=== PATIENT | male | born 2005 | race Caucasian/White ===

== ENCOUNTER 2025-05-25 00:33 | Outpatient (CLI) | payer OTHER, SELFPAY | END 2025-05-25 00:34 | disposition home or self-care (01) | LOC: AMB 05-31 09:08 | PROVIDERS: Visit Provider Family Medicine | DX: R56.9 Unspecified convulsions (principal) | CPT/HCPCS: A0998 ==

== ENCOUNTER 2025-07-03 13:32 | Emergency (ER) | payer BC, SELFPAY ==
[2025-07-03 13:34] VITALS: BP 134/79; PULSE 75; RESP 20; TEMP 36.6; O2SAT 99; BMI 26.3
--- NOTE | 2025-07-03 14:00 | ED_ITS ---
HPI - General Adult General Time Seen by Provider: 14:08 Date Seen: 07/03/25 Chief complaint: Sore Throat Stated complaint: swollen throat Time Seen by Provider: 07/03/25 13:38 Source: patient and RN notes reviewed Mode of arrival: ambulatory Limitations: no limitations History of Present Illness HPI narrative: This 19-year-old male is coming in with sore throat starting yesterday. He has felt some chills but no documented fever, admittedly does not have a thermometer at [facility]. He notes no otalgia, no respiratory symptoms, no abdominal symptoms with this. He took ibuprofen about 1 hour prior to arrival. It does hurt with swallowing but he is able to swallow. He is had no known recent ill contacts, roommate is not sick, no recent travel. Patient is not in any contact sports. Related Data Home Medications ?Medication ?Instructions ?Recorded ?Confirmed emtricitabine 200 mg-tenofovir 1 tab PO DAILY 07/03/25 07/03/25 disoproxil fumarate 300 mg tablet (Truvada) Allergies Allergy/AdvReac Type Severity Reaction Status Date / Time No Known Drug Allergies Allergy Verified 07/03/25 13:40 Review of Systems Narrative: As per HPI. Exam Const: Vital Signs, click to edit/add: Vital Signs - 24 hr 07/03/25 13:34 Temperature 97.9 F Pulse Rate [Pulse Oximeter] 75 Respiratory Rate 20 Blood Pressure [Ri ght Upper Arm] 134/79 Pulse Oximetry 99 Oxygen Delivery Me thod Room Air This 19-year-old male is alert, interactive, no apparent distress. He is seen in exam room for, sitting up in the chair. Pupils equal round reactive, sclera clear, TMs canals normal, symmetrical facial function. Speech is normal, not muffled. He opens his mouth easily, tonsils are about 1+ with white exudates bilaterally, they are symmetrical, the surrounding tissues erythematous, he still has a very good oral airway. Oral mucosa is normal, dentition is normal. He has some bilateral anterior adenopathy but nothing fixture matted, does not seem that tender. Do not note any posterior adenopathy at this time. Lungs are clear, good air entry, no wheezing or crackles, no tachypnea, no accessory muscle use. CV regular rate and rhythm, no murmur. Abdomen is soft, nontender. Documenting provider has reviewed patient's vital signs: yes Course Course ED Course: Nursing staff had collected a strep test and triple viral swab appropriately on arrival, this is pending. Patient and I discussed his throat certainly looks consistent with pharyngitis. If the triple viral swab and strep test are negative, would have suspicions for other bacterial causes of pharyngitis as well as possibly mono which is viral with EBV as a causative etiology. We did discuss with symptoms only about 24 hours, there would be a high chance of a false negative on the Monospot, the heterophile antibody takes while to develop. A CBC may be beneficial and allowing us to look at the cell lines and the total white count. If he would have significant monocytes on this, would be more concerned for mono. Patient does agree to do a CBC but declines Monospot testing after our discussion. We will do this if his strep does come back negative. Reevaluation(s) Time of Reevaluation #1: 14:41 Reevaluation #1: Patient's strep and triple viral swab are negative. Will order CBC. He is updated on this. Time of Reevaluation #2: 15:24 Reevaluation #2: Have reviewed with patient that his white count is normal but there is elevation of lymphocytes which would go with viral etiology. We discussed that this is different than the monocytes. I do think there is still the possibility that this is mono. Will give him steroids for symptom control, he would like this from [facility]. We discussed symptomatic treatment, outpatient observation recheck if worsening. I do not believe the antibiotics are indicated at this time, seems to be viral pattern. Vital Signs Vital signs: Initial Vital Signs Temperature 97.9 F 07/03/25 13:34 Temperature Source Temporal Artery Scan 07/03/25 13:34 Pulse Rate 75 07/03/25 13:34 Pulse Rhythm Regular 07/03/25 13:34 Pulse Strength 3+ Normal 07/03/25 13:34 Respiratory Rate 20 07/03/25 13:34 Blood Pressure 134/79 07/03/25 13:34 Blood Pressure Mean 97 07/03/25 13:34 Blood Pressure Position Sitting 07/03/25 13:34 Pulse Oximetry 99 07/03/25 13:34 Oxygen Delivery Method Room Air 07/03/25 13:34 Vital Signs Temperature 97.9 F 07/03/25 13:34 Pulse Rate 75 07/03/25 13:34 Respiratory Rate 20 07/03/25 13:34 Blood Pressure 134/79 07/03/25 13:34 Pulse Oximetry 99 07/03/25 13:34 Oxygen Delivery Method Room Air 07/03/25 13:34 Temperature 97.9 F 07/03/25 13:34 Pulse Rate 75 07/03/25 13:34 Respiratory Rate 20 07/03/25 13:34 Blood Pressure 134/79 07/03/25 13:34 Pulse Oximetry 99 07/03/25 13:34 Oxygen Delivery Method Room Air 07/03/25 13:34 Medical Decision Making Lab Data Lab results reviewed: Yes I reviewed the patient's lab results Labs: Lab Results 07/03/25 07/03/25 Range/Units 13:44 15:06 WBC 10.01 (4.50-11.00) K/uL RBC 5.11 (4.30-5.90) m/uL Hgb 15.1 (13.5-17.5) gm/dL Hct 44.9 (37.0-53.0) % MCV 88 (80-100) fL MCH 30 (26-34) pg MCHC 34 (32-36) gm/dL RDW Coeff of Bruno 11.8 (11.5-15.5) % Plt Count 204 (140-440) K/uL Neut % (Auto) 44.2 (42.0-72.0) % Lymph % (Auto) 46.5 H (20-44) % Pettis % (Auto) 8.4 (0.0-11.0) % Eos % (Auto) 0.5 (0.0-7.0) % Baso % (Auto) 0.2 (0.0-3.0) % Neut # (Auto) 4.43 (1.7-7.0) K/uL Lymph # (Auto) 4.70 H (0.90-2.90) K/uL Pettis # (Auto) 0.80 (0.00-0.90) K/UL Eos # (Auto) 0.05 (0.00-0.50) K/uL Baso # (Auto) 0.02 (0.00-0.30) K/uL Abs Immat Gran (auto) 0.02 (0.00-0.30) K/uL Imm/Tot Granulo (auto) 0.2 % SARS-CoV-2 (PCR) Negative SARS-CoV-2 (Negative) Influenza Type A (PCR) Negative PCR FLU A (Negative) Influenza Type B (PCR) Negative PCR FLU B (Negative) RSV (PCR) Negative PCR RSV (Negative) Group A Strep DNA NOT DETECTED (Not Detectd) Discharge Plan Discharge Clinical Impression: Acute viral pharyngitis Patient Disposition: Home, Self-Care Condition: Stable Instructions: Pharyngitis (ED) Additional Instructions: Start prednisone 20 mg twice a day for 5 days, this will help decrease inflammation and can certainly make you feel better. Can still use Tylenol and ibuprofen per bottle directions as needed for symptom control. Do recommend using Tylenol 1000 mg 3 times a day baseline for pain through this. Encourage fluids, this will help you stay hydrated. If you are not improving over the next week, feel you are worsening at any point, please seek re-evaluation. Activity Level: Activity as Tolerated Discharge Diet: Regular Prescriptions: No Action emtricitabine-tenofovir (TDF) [Truvada] 200-300 mg tablet 1 tab PO DAILY Follow Up/Referrals: Provider,Not a Local [Primary Care Provider, Family Practice] Stand Alone Forms: MyHealth Info Instructions
[2025-07-03 14:19] LABS: Strep A DNA Probe* NOT DETECTED (Not Detectd)
[2025-07-03 14:30] LABS: PCR FLU A Negative PCR FLU A (Negative); PCR FLU B Negative PCR FLU B (Negative); PCR RSV Negative PCR RSV (Negative); SARS PCR* Negative SARS-CoV-2 (Negative)
[2025-07-03 15:13] LABS: Hematocrit* 44.9 % (37.0-53.0); Hemoglobin* 15.1 gm/dL (13.5-17.5); Immature Granulocytes Abs Auto 0.02 K/uL (0.00-0.30); Immature Granulocytes Pct Auto 0.2 %; Mean Corpuscular HGB Conc 34 gm/dL (32-36); Mean Corpuscular Hemoglobin 30 pg (26-34); Mean Corpuscular Volume 88 fL (80-100); RDW Coefficient of Variation % 11.8 % (11.5-15.5); Red Blood Count* 5.11 m/uL (4.30-5.90); White Blood Count* 10.01 K/uL (4.50-11.00)
[2025-07-03 15:17] LABS: Lymphocytes Absolute Auto 4.70 K/uL (0.90-2.90); Slide Review Reflex No
[2025-07-03 15:39] VITALS: BP 103/70; PULSE 69; RESP 16; O2SAT 98
== END 2025-07-03 15:43 | disposition home or self-care (01) ==
PROVIDERS: Emergency Provider Family Medicine
DX: J02.9 Acute pharyngitis, unspecified (principal)
CPT/HCPCS: 36415; 85025; 87631; 87651; 99283

== ENCOUNTER 2025-07-30 00:41 | Emergency (ER) | payer BC, SELFPAY ==
--- OUTSIDE RECORDS SUMMARY | 2025-06-07 15:30 | XMS_ITS | Encounter Summary ---
Author Organization [facility] Address [address] [place] [address] Care Team Providers Care Odd Jobs Day Worker Name Role Phone Spencer Noonan RN Unavailable [phone] Pily Acevedo DO Primary Care Provider [phone] Reason for Referral * MRI/CAT Scan (Routine) - Authorization Not NeededSpecialtyDiagnoses / ProceduresReferred By ContactReferred To ContactRadiology Diagnoses Seizure-like activity Procedures MRI Brain w wo Contrast Pily Acevedo DO [address] [facility] [address] [place] [address] Phone: tel: fax: Referral IDStatusReasonStart DateExpiration DateVisits RequestedVisits [id number] Not Xhtows54/ Reason for Visit * ReasonCommentsFollow-upSeizure first time Encounter Details DateTypeDepartmentCare Team (Latest Contact Info)Suqpafunkgt71/20/2025 4:30 PM CDTOffice Visit [facility] [address] [place], [place] [id number] Pily Acevedo DO [address] [facility] [address] [place] [address] Seizure-like activity (Primary Dx) Social History Tobacco UseTypesPacks/DayYears UsedDateSmoking Tobacco: NeverSmokeless Tobacco: Never Comments:Denies any secondha nd smoke exposure. Alcohol UseStandard Drinks/WeekCommentsNever0 (1 standard drink = 0.6 oz pure alcohol)AUDIT-CAnswerDate RecordedQ1: How often do you have a drink containing alcohol?Never02/29/2020Average Number of DrinksNot on file02/29/2020Frequency of Binge DrinkingNot on file02/29/2020PHQ-2AnswerDate RecordedPHQ-2 Total Score0 06/07/2025Sex and Gender InformationValueDate RecordedSex Assigned at BirthNot on fileLegal FcvIznv86/21/2012 11:48 AM CDTGender IdentityNot on fileSexual OrientationLesbian or Gay06/07/2025 10:38 AM CDTdocumented as of this encounter Last Filed Vital Signs Vital SignReadingTime TakenCommentsBlood Kubnigzb880/8206/07/2025 4:38 PM CDT Rfnnd700206/07/2025 4:38 PM KHLXlawpddqgho98.8 ??C (98.2 ??F)06/07/2025 4:38 PM CDTRespiratory Bluz4380 4:38 PM CDTOxygen Hddlnsxasp38%06/07/2025 4:38 PM CDTInhaled Oxygen Concentration--Oqindk96.4 kg (217 lb)06/07/2025 4:38 PM CDT Vnrmcj376.6 cm (6' 5)06/07/2025 4:38 PM CDTBody Mass Index25.7306/07/2025 4:38 PM CDTdocumented in this encounter Functional Status * Are you deaf or do you have serious difficulty hearing?AnswerDate of BtjjyjukkjTwscqsGn17/20/2025 4:40 PM Shiloh Vargas LPN * Are you blind or do you have serious difficulty seeing, even when wearing glasses?AnswerDate of XqlkfvzkaqLzgssrSg59/20/2025 4:40 PM Shiloh Vargas LPN * Do you have serious difficulty walking or climbing stairs? (5 years old or older)AnswerDate of FaferuuercJkvaiyCy22/20/2025 4:40 PM Shiloh Vargas LPN * Do you have difficulty dressing or bathing? (5 years old or older)AnswerDate of DkaphbcqogSwawyuTc58/20/2025 4:40 PM CDShiloh Ramírez LPN * Because of a physical, mental, or emotional condition, do you have difficulty doing errands alone such as visiting a doctor's office or shopping? (15 years old or older)AnswerDate of TgmwtocyhpSticchVk26/20/2025 4:40 PM Shiloh Vargas LPN documented as of this encounter Mental Status * Because of a physical, mental, or emotional condition, do you have serious difficulty concentrating, remembering, or making decisions? (5 years old or older)AnswerEntry CycoVfkpnmOp57/20/2025 4:40 PM Shiloh Vargas LPN documented in this encounter Progress Notes * Pily Acevedo, DO - 06/07/2025 4:30 PM CDT Subjective Dominik Gtz is a 19 y.o. male presents for possible seizure, new onset. This was around midnight 05/24/2025. He was just not feeling well and sitting on the floor. He started shaking and roommate said it was about 40 sec. EMS evaluated and vitals ok other than slightly high blood pressure. He had slight fever afterwards, but not before. No history of headache. No new medication. Hedid not have alcohol for a few days. He is typically drinking about weekly and doesn't have black outs or hangovers. No biting tongue or loss of bowel or bladder control. He felt nauseous prior to this, but no other symptoms. He was sleep deprived with about 8 hours of sleep over the previous 48 hours. He was a little out of it right after episode, but was improving prior to EMT arrival (15-30 min). No drug use. No family history of seizures. Patient's problem list, medications, allergies, past medical, surgical, social and family historieswere reviewed and updated as appropriate. Objective BP 120/82 Pulse 70 Temp 36.8 ??C (98.2 ??F) (Tympanic) Resp 18 Ht 195.6 cm (6' 5) Wt 98.4 kg (217 lb) SpO2 98% BMI 25.73 kg/m?? BP 120/82 Pulse 70 Temp 36.8 ??C (98.2 ??F) (Tympanic) Resp 18 Ht 195.6 cm (6' 5) Wt 98.4 kg (217 lb) SpO2 98% BMI 25.73 kg/m?? General appearance: alert, appears stated age, and cooperative Head: Normocephalic, without obvious abnormality, atraumatic Eyes: conjunctivae/corneas clear. PERRL, EOM's intact. Ears: normal TM's and external ear canals both ears Throat: lips, mucosa, and tongue normal; teeth and gums normal Neck: no adenopathy, no JVD, supple, symmetrical, trachea midline, and thyroid not enlarged, symmetric, no tenderness/mass/nodules Lungs: clear to auscultation bilaterally Heart: regular rate and rhythm, S1, S2 normal, no murmur, click, rub or gallop Extremities: extremities normal, atraumatic, no cyanosis or edema Skin: Skin color, texture, turgor normal. No rashes or lesions Neurologic: Alert and oriented X 3, normal strength and tone. Normal symmetric reflexes. Normal coordination and gait. No dysdiadochokinesia. Normal izjcvc-dgnb-cogbpw test, heel saba. Psych: appropriately attired, well kept, behavior and speech normal, mood and affect appropriate. Assessment & Plan Dominik was seen today for follow-up. Diagnoses and all orders for this visit: Seizure-like activity - MRI Brain w wo Contrast; Future - EEG Routine; Future - Comprehensive metabolic panel; Future - CBC and differential; Future - Magnesium; Future - TSH; Future Testing as above. No diagnosis of diabetes. I do not know if this was checked by EMS at the time ofthe incident. It is possible that this is a new onset seizure, but may also be related to illness and blood pressure drop. Advised sleep deprivation can trigger seizure for people that are prone, butcan also affect ability to regulate blood pressure. Denies drug use or concerns for withdrawal. No medication changes that would potentially account for his symptoms. Advised as his episode was at nighttime, this technically would not prevent him from being able to drive, but if there are episodes of uncontrolled body control, particularly if they cannot be predicted that it would be a risk to drive. Advised that you can have a normal EEG and still have seizures MRI. If MRI does show any lesions, this would need specialist referral depending on findings. This is not clearly a seizure/seizure disorder at this time and medication is not indicated for it. documented in this encounter Miscellaneous Notes * Addendum Note - Lamin Polo LPN - 06/07/2025 4:30 PM CDTAddended by: LAMIN POLO on: 06/08/2025 04:57 PM Modules accepted: Orders * Addendum Note - Lamin Polo LPN - 06/07/2025 4:30 PM CDTAddended by: LAMIN POLO on: 07/06/2025 11:58 AM Modules accepted: Orders [employer] documented in this encounter Plan of Treatment NameTypePriorityAssociated DiagnosesDate/TimeMRI Brain w wo ContrastImaging Routine Seizure-like activity 06/10/2025 3:50 PM CDTNameTypePriorityAssociated DiagnosesOrder ScheduleMRI Brain w wo ContrastImagingRoutine Seizure-like activity Expected: 06/07/2025 (Approximate), Expires: 09/05/2025documented as of this encounter Goals GoalPatient Goal TypeAssociated ProblemsRecent ProgressPatient-Stated?Author 07/01/18 Reduce portion sizes DietOn track(04/15/2019 11:49 AM CDT)Lala Osborn RN Note: Discussed portion sizes and gave D[employer] [place] [employer] [place]/[email or web address] serving size chart Strategies to decrease portions by: ?? Knowing what portions of different foods look like. ?? Making sure at least 1/2 of the plate is fruit/vegetable. And using only 9 plates. ?? Resource: [employer] magazine for lunch ideas!!! Ways to increase our fruit/vegetable intake during the day: ?? Chopping and bagging up vegetables, such as celery and carrots, at the beginning of the week so that portions of veggies are available to grab and go! ?? Preparing more vegetables at meal time than the grain/carb or protein. Fill up on vegetables andyou'll have less room for the carb. Eat more fruits and vegetables Spencer Reveles, RN Note: Dominik is going to try a new fruit and vegetable each week to expand his options and find different things he likes. 07/01/18 Family meals GeneralOn track(04/15/2019 11:49 AM CDT)Lala Merlos, FILIBERTO Note: Dominik expressed interest in having more family meals. He and mom set up plan to make a schedule of meals for the week and do the grocery shopping on Saturdays using a list. They are going to do meal prep on Sundays and during the week Dominik agreed to help prepare the mealsso he would be more invested in what was being served. 07/01/18 Family to work together to make dinner LifestyleOn track(04/15/2019 11:49 AM CDT)Lala Osborn, FILIBERTO Note: . Family is going to make a meal plan for the week and prepare the meals together. Come up with meal options (5210 recipe booklets and [employer] magazines) documented as of this encounter Results * TSH (06/08/2025 8:55 AM CDT)ComponentValueRef RangeTest MethodAnalysis Time Performed AtPathologist SignatureTSH2.1300.270 - 4.200 u[IU]/mL06/08/2025 7:55 PM CDTPathology LaboratoryComment:Performed at [facility], [address] [place] [id number] (Source)Anatomical Location / LateralityCollection Method / VolumeCollection TimeReceived TimeSerum 06/08/2025 8:55 AM CDT1 8:57 AM CDT Narrative Authorizing ProviderResult TypeResult StatusPily Gardineran DOLAB BLOOD ORDERABLES Final ResultPerforming OrganizationAddressCity/State/ZIP CodePhone Number [facility] [address] [place], [address] [facility] [address] [place] [address] * Magnesium (06/08/2025 8:55 AM CDT)ComponentValueRef RangeTest MethodAnalysis TimePerformed AtPathologist SignatureMagnesium2.01.6 - 2.6 mg/dL06/08/2025 7:55 PM CDTPathology LaboratoryComment:Performed at [facility], [address] [place] [address], [place], [place] [address]Bsrkqhum (Source)Anatomical Location / LateralityCollection Method / VolumeCollection TimeReceived TimeSerum 06/08/2025 8:55 AM CDT1 8:57 AM CDT Narrative Authorizing ProviderResult TypeResult StatusPily Acevedo DOLAB BLOOD ORDERABLES Final ResultPerforming OrganizationAddressCity/State/ZIP CodePhone Number [facility] [address] [place], [address] [facility] [address] [place] [address] * CBC and differential (06/08/2025 8:55 AM CDT)ComponentValueRef RangeTest MethodAnalysis TimePerformed AtPathologist SignatureWBC7.554.0 - 11.0 10*3/uL 06/08/2025 10:17 AM CDTUNUNITYPOINT [facility] EDRBC4.754.60 - 6.20 10*6/uL 06/08/2025 10:17 AM CDTUNUN[facility] KTFLJV55.514.0 - 18.0 g/dL 06/08/2025 10:17 AM CDTUNITY[facility] ZKYJNS03.442.0 - 52.0 % 06/08/2025 10:17 AM CDTUNUN[facility] BLBRVY53.381.0 - 98.0 fL 06/08/2025 10:17 AM CDTUNUN[facility] WARDJXZWOE60.527.0 - 34.0 pg 06/08/2025 10:17 AM [facility] WARDCGJGQOR38.231.5 - 36.0 g/dL 06/08/2025 10:17 AM [facility] [address] WARDFOWUtbqrilxn091215 - 450 10*3/uL06/08/2025 10:17 AM [facility] [address] HAYRDW-CV12.09.0 - 14.5 %06/08/2025 10:17 AM [facility] [address] QUCWIA25.18.7 - 12.6 fL 06/08/2025 10:17 AM [facility] MERCHATO HAYNeutrophil %61.3%06/08/2025 10:17 AM [facility] MERLE HAYNeutrophils Absolute4.631.5 - 8.0 10*3/uL06/08/2025 10:17 AM [facility] MERCHATO HAYLymphocytes %27.9% 06/08/2025 10:17 AM [facility] MERCHATO HAYLymphocytes Absolute2.111.2 - 5.2 10*3/uL06/08/2025 10:17 AM [facility] MERLE HAYMonocyte %8.9% 06/08/2025 10:17 AM [facility] MERCHATO HAYMonos Absolute0.670.0 - 1.0 10*3/uL06/08/2025 10:17 AM [facility] MERLE HAYEosinophils Relative %1.1%06/08/2025 10:17 AM [facility] MERLE HAYEosinophils Absolute Count0.080.0 - 0.5 10*3/uL06/08/2025 10:17 AM [facility] MERLE HAY Basophils %0.4%06/08/2025 10:17 AM [facility] MERLE HAYBasophils Absolute0.030.0 - 0.1 10*3/uL06/08/2025 10:17 AM [facility] MERLE HAYImmature Granulocytes%0.40.0 - 0.6 %06/08/2025 10:17 AM CDTUNUV[facility] [address] WARDImmature Granulocytes Absolute0.030.0 - 0.9 10*3/uL06/08/2025 10:17 AM CDTUNUVA HEALTH [facility]ERS[facility] [address] WARDComment:Performed at [facility], [address], [place] [address].Specimen (Source)Anatomical Location / LateralityCollection Method / VolumeCollection TimeReceived Time BloodBLOOD SPECIMEN / Fluczvr0206/08/2025 8:55 AM CDT1 8:57 AM CDT Narrative Authorizing ProviderResult TypeResult StatusErin Vaughn SABA BLOOD ORDERABLES Final ResultPerforming OrganizationAddressCity/State/ZIP CodePhone Number [facility] [address] [facility] [address] [place], [address] [facility] [place] [address] [place] [address] * (ABNORMAL) Comprehensive metabolic panel (06/08/2025 8:55 AM CDT)Component ValueRef RangeTest MethodAnalysis TimePerformed AtPathologist SignatureSodium 448154 - 145 mmol/L1 7:55 PM CDTPathology LaboratoryPotassium4.13.5 - 5.1 mmol/L1 7:55 PM CDTPathology BizecfdtzhNgslwkbw35470 - 107 mmol/L1 7:55 PM CDTPathology NypftxuqzkLG05017 - 29 mmol/L1 7:55 PM CDTPathology JqflrhvhebWnwlvuc328(H)70 - 99 mg/dL06/08/2025 7:55 PM CDTPathology BfgvirjkdfOWZ872 - 20 mg/dL06/08/2025 7:55 PM CDTPathology LaboratoryCreatinine0.840.8 - 1.3 mg/dL06/08/2025 7:55 PM CDTPathology LaboratoryCalcium9.48.5 - 10.5 mg/dL06/08/2025 7:55 PM CDTPathology Laboratory Total Protein6.86.4 - 8.3 g/dL06/08/2025 7:55 PM CDTPathology Laboratory Albumin4.63.5 - 5.2 g/dL06/08/2025 7:55 PM CDTPathology LaboratoryBilirubin Total0.50.4 - 1.3 mg/dL06/08/2025 7:55 PM CDTPathology LaboratoryAlkaline Nsbwamoksdf32365 - 129 U/L1 7:55 PM CDTPathology HwikoygpujAJP413 - 48 U/L1 7:55 PM CDTPathology KhvjmrrwubFYC55<41 U/L1 7:55 PM CDTPathology LaboratoryAnion Cnb10stbh/L1 7:55 PM CDTPathology LaboratoryBUN/Creatinine Ratio11.81 7:55 PM CDTPathology Laboratory Osmolality Roemsuavdl721(H)275 - 295 mosm/kg06/08/2025 7:55 PM CDTPathology LaboratoryGlobulin2.2g/dL06/08/2025 7:55 PM CDTPathology LaboratoryA/G Ratio 2.110 7:55 PM CDTPathology LaboratoryCreatinine Based eGFR>90 mL/min/[1.73_m2]06/08/2025 7:55 PM CDTPathology LaboratoryComment: GFR >90 Normal or elevated GFR. Performed at [facility], [address] [place] [address] Specimen (Source)Anatomical Location / LateralityCollection Method / Volume Collection TimeReceived YnekXncei22/21/2025 8:55 AM CDT1 8:57 AM CDT Narrative Authorizing ProviderResult TypeResult StatusPily Mendes Kristina SABA BLOOD ORDERABLES Final ResultPerforming OrganizationAddressCity/State/ZIP CodePhone Number [facility] [address] [place], [address] [facility] [address] [place] [address]. [address] [place] [address] documented in this encounter Visit Diagnoses Diagnosis Seizure-like activity- Primary Other convulsions documented in this encounter Additional Health Concerns AssessmentNoted TimeA Body Mass Index follow-up plan has been documented for the fkteknm4803/27/2023 12:55 PM CDTdocumented as of this encounter Care Teams Team MemberRelationshipSpecialtyStart DateEnd Date Pily Acevedo, [address] [id number] PCP - GeneralFamily Medicine02/16/25 Spencer Noonan, RN [address] [place] [address] Care CoordinatorCare Ppdoofouhhdx33/9/18documented as of this encounter
[2025-07-30 00:46] VITALS: BP 137/79; PULSE 71; RESP 18; TEMP 36.4; O2SAT 97; BMI 30.7
--- NOTE | 2025-07-30 01:05 | ED.GENADULT ---
HPI - General Adult General Chief complaint: Skin/Abscess/Foreign Body Stated complaint: left foot toe pain Time Seen by Provider: 07/30/25 00:53 History of Present Illness HPI narrative: Patient is a 19-year-old gentleman comes in today with pain and swelling around the left great toe nail bed. The pain and swelling is localized to the superior aspect of the nail as consistent with a paronychia. Patient has had no fevers no signs of systemic infection no chills no night sweats. Patient is otherwise in good health and his tetanus shot is up-to-date. Related Data Home Medications ?Medication ?Instructions ?Recorded ?Confirmed emtricitabine 200 mg-tenofovir 1 tab PO DAILY 07/03/25 07/03/25 disoproxil fumarate 300 mg tablet (Truvada) Allergies Allergy/AdvReac Type Severity Reaction Status Date / Time No Known Drug Allergies Allergy Verified 07/03/25 13:40 Review of Systems Status of ROS: Reports: 10 or more systems reviewed and unremarkable except as noted in History and below PFSH PFS Social History Smoking Status: Never smoker How often do you have a drink containing alcohol: monthly or less AUDIT-C Alcohol total score: 1 Non-prescribed substance use: marijuana (any form) Non-prescribed substance use details: occasionally Exam Narrative: Exam Narrative: EXAM GENERAL: Patient appears comfortable and well. EYES: No scleral icterus. ENT: Tympanic membranes and oropharynx normal. THYROID: no thyroid nodules or thyromegaly. LYMPH: No supraclavicular or cervical lymphadenopathy. SKIN: Visible skin seen during exam normal or with benign process only. EXT: No dependent lower extremity pedal edema. Paronychia noted superior aspect left great toenail. Surrounding erythema noted. HEART: Regular rate and rhythm with no murmurs, rubs, or gallops. LUNGS: Clear to auscultation bilaterally with no crackles or wheezes. ABD: Soft, non tender, non distended. PSYCH: Good eye contact, speech is not pressured. Const: Vital Signs, click to edit/add: Vital Signs - 24 hr 07/30/25 00:46 Temperature 97.6 F Pulse Rate [Right Pulse Oximeter] 71 Respiratory Rate 18 Blood Pressure [Ri ght Upper Arm] 137/79 Pulse Oximetry 97 Oxygen Delivery Me thod Room Air Course Vital Signs Vital signs: Initial Vital Signs Temperature 97.6 F 07/30/25 00:46 Temperature Source Temporal Artery Scan 07/30/25 00:46 Pulse Rate 71 07/30/25 00:46 Respiratory Rate 18 07/30/25 00:46 Blood Pressure 137/79 07/30/25 00:46 Blood Pressure Mean 98 07/30/25 00:46 Blood Pressure Position Sitting 07/30/25 00:46 Pulse Oximetry 97 07/30/25 00:46 Oxygen Delivery Method Room Air 07/30/25 00:46 Vital Signs Temperature 97.6 F 07/30/25 00:46 Pulse Rate 71 07/30/25 00:46 Respiratory Rate 18 07/30/25 00:46 Blood Pressure 137/79 07/30/25 00:46 Pulse Oximetry 97 07/30/25 00:46 Oxygen Delivery Method Room Air 07/30/25 00:46 Temperature 97.6 F 07/30/25 00:46 Pulse Rate 71 07/30/25 00:46 Respiratory Rate 18 07/30/25 00:46 Blood Pressure 137/79 07/30/25 00:46 Pulse Oximetry 97 07/30/25 00:46 Oxygen Delivery Method Room Air 07/30/25 00:46 Medical Decision Making MDM Narrative Medical decision making narrative: Officially the risks and benefits of the procedure I did provide local anesthesia with 1% lidocaine without epinephrine. I then made a 1 cm incision draining a large amount of pus from the toe. We did dress the wound and instructed him on wound care. I will ask him to rotate Tylenol and Motrin keep his foot elevated and take Keflex 500 mg 3 times a day for 7 days. He will follow-up with his primary physician as needed. Discharge Plan Discharge Clinical Impression: Paronychia Patient Disposition: Home, Self-Care Condition: Stable Additional Instructions: Keep wound clean Triple antibiotic Daily dressing changes Tylenol Motrin Keflex Follow-up with your doctor as needed. Activity Level: No Restrictions Discharge Diet: Regular Prescriptions: No Action emtricitabine-tenofovir (TDF) [Truvada] 200-300 mg tablet 1 tab PO DAILY Follow Up/Referrals: Provider,Not a Local [Primary Care Provider, Family Practice] Stand Alone Forms: Ar[employer] Info Instructions
--- OUTSIDE RECORDS SUMMARY | 2025-07-30 01:18 | XMS_ITS | Clinical Summary ---
Author Organization [facility] Address [address] [place] [address] Care Team Providers Care Utility Forester Name Role Phone RockyjaswinderSpencer RN Unavailable [phone] Pily Acevedo DO Primary Care Provider [phone] Source Comments This disclosure is being made pursuant to the [employer] program and maynot contain all information available regarding this patient.[facility] Allergies No known active allergies Medications MedicationSigDispense QuantityRefillsLast FilledStart DateEnd DateStatus doxycycline hyclate (VIBRAMYCIN) 100 MG capsule Take 100 mg by mouth 2 (two) times daily with meals.5Active tretinoin (RETIN-A) 0.025 % cream APPLY THIN FILM TO FACE AT NIGHT BEFORE BED5Active emtricitabine-tenofovir (TRUVADA) 200-300 MG per tablet TAKE ONE TABLET BY MOUTH EVERY DAY START MEDICATION WITHIN 7 DAYS OF YOUR NEGATIVE HIV TEST IN CLINIC PLEASE SCHEDULE APPOINTMENTS EVERY 5Active clindamycin (CLEOCIN T) 1 % SWAB APPLY TO FACE, CHEST, AND BACK TWO TIMES A DAY5Active nystatin (MYCOSTATIN) ointment APPPLY TOPICALLY TO THE AFFECTED AREA(S) 2-3 TIMES DAILY5Active EPINEPHrine (EPIPEN) injection 0.3 mg Indications:Rash,Irritant dermatitisInject 0.3 mLs (0.3 mg total) into the muscle once as needed (anaphylaxis). May repeat dose in 5-15min for severe reactions. 1 each 5Active Additional Information Patient not taking.Reported on 06/07/2025 Active Problems ProblemNoted DateDiagnosed FzpdOkqizra93/06/2025 Overview (06/07/2025): 40 seconds, tonic-clonic first time Gynecomastia, male02/29/2020 Resolved Problems ProblemNoted DateDiagnosed DateResolved DateOverweight (BMI 25.0-29.9)03/18/2019 02/16/2025 Encounters DateTypeDepartmentCare MholEyetdnprgqz85/22/2025Results Follow-Up [facility] [address] [place] [address] Pily Acevedo, TSH, Magnesium, CBC and differential, Comprehensive metabolic panel06/08/2025 9:00 AM CDTLab [facility] [address] [place] [address] Coreen Warner L, CLT Seizure-like aasgexxu62/20/2025 4:30 PM CDTOffice Visit [facility] [address] [place] [address] Pily Acevedo, Seizure-like activity (Primary Dx)06/07/2025Travelfrom Last 3 Months Immunizations ImmunizationAdministration DatesNext DueCOVID-19 (PFIZER COMIRNATY) mRNA ages 12+4COVID-19 (PFIZER-BIVALENT) MRNA ages 12+2COVID-19 (PFIZER- purple cap) MRNA ages 12+12/03/2020,1DTaP (Daptacel) DTaP03/29/2008 DTaP, unspecified oxachrvofzk91/11/2008DTaP-Hepatitis B-Polio (Pediarix) ADQL-XqnR-UGP77/15/2005,05/02/2004,03/01/2004,2003Hepatitis A (Vaqta) HepA adult03/27/2023Hepatitis A (Vaqta) HepA fzatksrdx78/08/2022Hepatitis B004/17/2025 HiB PRP-T010/31/2004,05/02/2004,03/01/2004,2003Human Papillomavirus (Gardasil 9) 2nYLB5909/10/2015,03/07/2016,11/17/2015Influenza (FLUCELVAX) ccIIV3 04/17/2025Influenza (FLULAVAL) IIV4, prefilled kmezfkk0106/04/2022,09/16/2019 Influenza (FLUZONE) Inactivated, Trivalent, 6 months and older, multi-dose vial 0.5 mL05/18/2013,05/13/2012,05/29/2010,07/03/2007,07/24/2006,06/15/2004Influenza Split05/18/2013,05/13/2012,07/24/2006,06/15/2004Influenza, Inactivated, Quadrivalent, 3 years and older, multi-dose vial07/11/2016Influenza, Inactivated, Trivalent, 3 years and older, single dose brouzqi2008/15/2024, 06/14/2005LIVE Influenza (FLUMIST) GIMF00208/23/2013LIVE Agfxony-Zejqw-Xqvngip (M-M-R II) MMR03/29/2008,10/31/2004LIVE Varicella (Varivax) VAR03/29/2008, 10/31/2004Meningococcal B (Bexsero) MenB-4C03/23/2021,03/21/2020Meningococcal Conjugate (Menactra) MCV4 MenACWY-D011/17/2015Meningococcal Conjugate (Menveo) MCV4 MenACWY-CRM03/21/2020Pneumococcal Conjugate-7 (Prevnar 7) SMI095, 05/02/2004,03/01/2004,2003Polio (Ipol) IPV03/29/2008Tdap11/17/2015 haemophilus Influenzae type b (PedvaxHIB) Hib PRP-OMP10/31/2004,05/02/2004, 03/01/2004,2003 Family History Medical HistoryRelationNameCommentsHyperlipidemiaFatherThyroid diseaseMaternal AuntHypothyroidism.HyperlipidemiaMaternal GrandfatherHyperlipidemiaMaternal GrandmotherObesityMaternal GrandmotherThyroid diseaseMaternal Grandmother Hypothyroidism.Atrial fibrillationMotherHyperlipidemiaMotherObesityMotherThyroid diseaseMotherHypothyroidism.ArthritisPaternal GrandmotherAtrial fibrillation Paternal GrandmotherEhlers-Danlos syndromePaternal GrandmotherNo Known Problems SisterRelationNameStatusCommentsFatherAliveHt: 6 ft.Maternal AuntAliveMenarche age 13. Ht: 5 ft. 8 in.Maternal GrandfatherAliveHt: 5 ft. 10 in.Maternal GrandmotherAliveHt: 5 ft. 5 in.MotherAliveMenarche age 14. Ht: 6 ft.Paternal GrandfatherAlivePaternal GrandmotherAliveSisterAliveMenarche age 13. Ht: 5 ft. 9 in. Social History Tobacco UseTypesPacks/DayYears UsedDateSmoking Tobacco: NeverSmokeless Tobacco: Never Tobacco Cessation:Counseling Given: Not Answered Comments:Denies any secondhand smoke exposure. Alcohol UseStandard Drinks/WeekCommentsNever0 (1 standard drink = 0.6 oz pure alcohol)AUDIT-CAnswerDate RecordedQ1: How often do you have a drink containing alcohol?Never02/29/2020Average Number of DrinksNot on file02/29/2020Frequency of Binge DrinkingNot on file02/29/2020PHQ-2AnswerDate RecordedPHQ-2 Total Score0 06/07/2025Sex and Gender InformationValueDate RecordedSex Assigned at BirthNot on fileLegal EchLxpf78/21/2012 11:48 AM CDTGender IdentityNot on fileSexual OrientationLesbian or Gay06/07/2025 10:38 AM CDT Last Filed Vital Signs Vital SignReadingTime TakenCommentsBlood Qyadqmtn160/8206/07/2025 4:38 PM CDT Kyyss328706/07/2025 4:38 PM KOCJrmatcvjayv79.8 ??C (98.2 ??F)06/07/2025 4:38 PM CDTRespiratory Jrol9864 4:38 PM CDTOxygen Pmamcvsway87%06/07/2025 4:38 PM CDTInhaled Oxygen Concentration--Jpzwju23.4 kg (217 lb)06/07/2025 4:38 PM CDT Aisosb939.6 cm (6' 5)06/07/2025 4:38 PM CDTBody Mass Index25.7306/07/2025 4:38 PM CDT Plan of Treatment Health MaintenanceDue DateLast DoneCommentsLab-Cholesterol Qijzzrnbp61/10/2004 Lab-Hepatitis C Vbahygpps86/10/2004Annual Wellness Visit/04/2023, 2COVID-19 Vaccine ( season), 06/04/2022, 12/03/2020, Additional history existsTetanus/Pertussis Vaccine Teen/Adult (7 - Td or Tdap)6011/17/2015, 03/29/2008, 03/29/2008, Additional history existsZoster (Shingles) Vaccine 50+ (1 of 2)4RSV Adult (1 - 1-dose 75+ series)10/26/2078HIB OwihmyiIkbndgesd27/15/2005, 10/31/2004, 05/02/2004, Additional history existsPneumococcal Vaccines 0-49 yoAged Out10/31/2004, 05/02/2004, 03/01/2004, Additional history existsNo longer eligible based on patient's age to complete this topicIPV HkvbhfjRkyxdnifg75/11/2008, 01/31/2005, 05/02/2004, Additional history existsHPV Vaccine (9-26yo & Shared Decision 27-45yo)Ggyzhegty21/23/2016, 03/07/2016, 11/17/2015Meningococcal Conjugate FlfapkhEtckabiic54/03/2020, 11/17/2015Meningococcal B VaccineCompleted 03/23/2021, 03/21/2020Hepatitis A XaajqutHkfqhnaib86/09/2023, 03/26/2022 Hepatitis B GtckhtgBqpnpzoxf79/30/2025, 01/31/2005, 05/02/2004, Additional history existsInfluenza BzsgbxhUkagipuvj70/30/2025, 08/15/2024, 06/04/2022, Additional history existsRSV < 20 MonthsAged OutNo longer eligible based on patient's age to complete this topic Goals GoalPatient Goal TypeAssociated ProblemsRecent ProgressPatient-Stated?Author 07/01/18 Reduce portion sizes DietOn track(04/15/2019 11:49 AM CDT)Lala Osborn, RN Note: Discussed portion sizes and gave [employer] [email or web address] serving size chart Strategies to decrease portions by: ?? Knowing what portions of different foods look like. ?? Making sure at least 1/2 of the plate is fruit/vegetable. And using only 9 plates. ?? Resource: [employer] magazine for lunch ideas!!! Ways to increase [...] meals GeneralOn track(04/15/2019 11:49 AM CDT)Lala Merlos, RN Note: Dominik expressed interest in having more [...] with meal options (5210 recipe booklets and Chop chop magazines) Procedures Procedure NamePriorityDate/TimeAssociated DiagnosisCommentsCOMPREHENSIVE METABOLIC RUTYYYzahmdg37/21/2025 8:55 AM CDT Seizure-like activity CBC AND ZKRLTDBJSUUPMstidlc41/21/2025 8:55 AM CDT Seizure-like activity AVKHNZMKMNwlmozt95/21/2025 8:55 AM CDT Seizure-like activity OXQAqzccoe91/21/2025 8:55 AM CDT Seizure-like activity from Last 3 Months Results * CBC and differential (06/08/2025 8:55 AM CDT)ComponentValueRef RangeTest MethodAnalysis TimePerformed AtPathologist SignatureWBC7.554.0 - 11.0 10*3/uL 06/08/2025 10:17 AM CDTUNBLACK RIVER MEMORIAL HOSPITALRBC4.754.60 - 6.20 10*6/uL 06/08/2025 10:17 AM CDTUNBLACK RIVER MEMORIAL HOSPITALHGB14.514.0 - 18.0 g/dL 06/08/2025 10:17 AM CDTUNBLACK RIVER MEMORIAL HOSPITALHCT42.442.0 - 52.0 % 06/08/2025 10:17 AM [facility]89.381.0 - 98.0 fL 06/08/2025 10:17 AM CDTUNBELLIN HEALTH'S BELLIN MEMORIAL HOSPITALH30.527.0 - 34.0 pg 06/08/2025 10:17 AM CDTAURORA MEDICAL CENTERHC34.231.5 - 36.0 g/dL 06/08/2025 10:17 AM CDTUNBLACK RIVER MEMORIAL HOSPITALPlatelets294150 - 450 10*3/uL06/08/2025 10:17 AM [facility] HAYRDW-CV12.09.0 - 14.5 %06/08/2025 10:17 AM [facility] WFBFHM52.18.7 - 12.6 fL 06/08/2025 10:17 AM [facility] HAYNeutrophil %61.3%06/08/2025 10:17 AM [facility] HAYNeutrophils Absolute4.631.5 - 8.0 10*3/uL06/08/2025 10:17 AM [facility] HAYLymphocytes %27.9% 06/08/2025 10:17 AM [facility] HAYLymphocytes Absolute2.111.2 - 5.2 10*3/uL06/08/2025 10:17 AM [facility] HAYMonocyte %8.9% 06/08/2025 10:17 AM [facility] HAYMonos Absolute0.670.0 - 1.0 10*3/uL06/08/2025 10:17 AM [facility] HAYEosinophils Relative %1.1%06/08/2025 10:17 AM [facility] HAYEosinophils Absolute Count0.080.0 - 0.5 10*3/uL06/08/2025 10:17 AM [facility] Basophils %0.4%06/08/2025 10:17 AM [facility] HAYBasophils Absolute0.030.0 - 0.1 10*3/uL06/08/2025 10:17 AM [facility] HAYImmature Granulocytes%0.40.0 - 0.6 %06/08/2025 10:17 AM [facility] HAYImmature Granulocytes Absolute0.030.0 - 0.9 10*3/uL06/08/2025 10:17 AM [facility] HAYComment:Performed at [facility], [facility] [address], [place] [address].Specimen (Source)Anatomical Location / LateralityCollection Method / VolumeCollection TimeReceived Time BloodBLOOD SPECIMEN / Clupksc8706/08/2025 8:55 AM CDT1 8:57 AM CDT Narrative Authorizing ProviderResult TypeResult StatusPily VELÁSQUEZAB BLOOD ORDERABLES Final ResultPerforming OrganizationAddressCity/State/ZIP CodePhone Number [facility] [address] [place], [address] [facility] [address] [place] [address] * TSH (06/08/2025 8:55 AM CDT)ComponentValueRef RangeTest MethodAnalysis Time Performed AtPathologist SignatureTSH2.1300.270 - 4.200 u[IU]/mL06/08/2025 7:55 PM CDTPathology LaboratoryComment:Performed at [facility], [address] [place], [place] [address]Qlxtwfrq (Source)Anatomical Location / LateralityCollection Method / VolumeCollection TimeReceived TimeSerum 06/08/2025 8:55 AM CDT1 8:57 AM CDT Narrative Authorizing ProviderResult TypeResult StatusPily Acevedo DOLAB BLOOD ORDERABLES Final ResultPerforming OrganizationAddressCity/State/ZIP CodePhone Number [facility] [address] [place] [facility], [address] [facility] [address] [place] [address] * Magnesium (06/08/2025 8:55 AM CDT)ComponentValueRef RangeTest MethodAnalysis TimePerformed AtPathologist SignatureMagnesium2.01.6 - 2.6 mg/dL06/08/2025 7:55 PM CDTPathology LaboratoryComment:Performed at [facility], [address] [facility], [place] [address]Ikkyslas (Source)Anatomical Location / LateralityCollection Method / VolumeCollection TimeReceived TimeSerum 06/08/2025 8:55 AM CDT1 8:57 AM CDT Narrative Authorizing ProviderResult TypeResult StatusPily SABA BLOOD ORDERABLES Final ResultPerforming OrganizationAddressCity/State/ZIP CodePhone Number [facility] [place] [address] [address] [place], [address] [facility] [address] [place] [address] * (ABNORMAL) Comprehensive metabolic panel (06/08/2025 8:55 AM CDT)Component ValueRef RangeTest MethodAnalysis TimePerformed AtPathologist SignatureSodium 813494 - 145 mmol/L1 7:55 PM CDTPathology LaboratoryPotassium4.13.5 - 5.1 mmol/L1 7:55 PM CDTPathology UllloufpeiPnqyalme41893 - 107 mmol/L1 7:55 PM CDTPathology FvxqcrpohyQN01477 - 29 mmol/L1 7:55 PM CDTPathology ZwpldozgltRbdljei064(H)70 - 99 mg/dL06/08/2025 7:55 PM CDTPathology WrxvbqhgucXLW818 - 20 mg/dL06/08/2025 7:55 PM CDTPathology LaboratoryCreatinine0.840.8 - 1.3 mg/dL06/08/2025 7:55 PM CDTPathology LaboratoryCalcium9.48.5 - 10.5 mg/dL06/08/2025 7:55 PM CDTPathology Laboratory Total Protein6.86.4 - 8.3 g/dL06/08/2025 7:55 PM CDTPathology Laboratory Albumin4.63.5 - 5.2 g/dL06/08/2025 7:55 PM CDTPathology LaboratoryBilirubin Total0.50.4 - 1.3 mg/dL06/08/2025 7:55 PM CDTPathology LaboratoryAlkaline Suzfwldzicu19086 - 129 U/L1 7:55 PM CDTPathology BvnqrlraucVGO967 - 48 U/L1 7:55 PM CDTPathology KvzxvcgfqtEMC68<41 U/L1 7:55 PM CDTPathology LaboratoryAnion Bwq80qdca/L1 7:55 PM CDTPathology LaboratoryBUN/Creatinine Ratio11.810 7:55 PM CDTPathology Laboratory Osmolality Ucgqguowbx208(H)275 - 295 mosm/kg06/08/2025 7:55 PM CDTPathology LaboratoryGlobulin2.2g/dL06/08/2025 7:55 PM CDTPathology LaboratoryA/G Ratio 2.110 7:55 PM CDTPathology LaboratoryCreatinine Based eGFR>90 mL/min/[1.73_m2]06/08/2025 7:55 PM CDTPathology LaboratoryComment: GFR >90 Normal or elevated GFR. Performed at [facility], [address], [place] [address] Specimen (Source)Anatomical Location / LateralityCollection Method / Volume Collection TimeReceived YfedDldxv21/21/2025 8:55 AM CDT1 8:57 AM CDT Narrative Authorizing ProviderResult TypeResult StatusErin Jaswinder SABA BLOOD ORDERABLES Final ResultPerforming OrganizationAddressCity/State/ZIP CodePhone Number [facility] [place] [address] [facility] [place], [address] [facility] [address] [place] [address] from Last 3 Months Insurance * Guarantor: Valorie Gtz TypeRelation to PatientDate of BirthPhoneBilling AddressBehavioral YaumgvYvdtwe56/23/1970 [address] [id number] Care Teams Team MemberRelationshipSpecialtyStart DateEnd Date Pily Acevedo, [address] [place] [id number] PCP - GeneralFamily Medicine02/16/25 Spencer Noonan, RN [address] [place] [address] Care CoordinatorCare Xdkpbvtrtxnd31/9/18
== END 2025-07-30 01:22 | disposition home or self-care (01) ==
LOC: ED 01:16
PROVIDERS: Emergency Provider Internal Medicine
DX: L03.032 Cellulitis of left toe (principal); L50.9 Urticaria, unspecified
CPT/HCPCS: 10060; 99283

== ENCOUNTER 2025-07-30 03:33 | Outpatient (CLI) | payer BC, SELFPAY | END 2025-07-30 03:34 | disposition home or self-care (01) | LOC: AMB 08-02 16:45 | PROVIDERS: Visit Provider Internal Medicine | DX: T78.40XA Allergy, unspecified, initial encounter (principal); L50.9 Urticaria, unspecified | CPT/HCPCS: A0425; A0427 ==

== ENCOUNTER 2025-07-30 04:05 | Emergency (ER) | payer BC, SELFPAY ==
[2025-07-30 04:07] VITALS: BP 144/85; PULSE 75; RESP 19; TEMP 36.7; O2SAT 97; BMI 27.4
--- NOTE | 2025-07-30 04:37 | ED_ITS ---
HPI - Allergic Reaction General Chief complaint: Allergic Reaction Stated complaint: hives Time Seen by Provider: 07/30/25 04:37 History of Present Illness HPI narrative: Patient is a 19-year-old gentleman who on we lanced a paronychia from his left great toe earlier tonight. Did place him on Keflex and patient has developed hives after taking the Keflex. Hives for limited itching is now resolved. He now remembers that he is low she to penicillin. His no mucous membrane involvement. No chest pain shortness a breath palpitations. Related Data Home Medications ?Medication ?Instructions ?Recorded ?Confirmed emtricitabine 200 mg-tenofovir 1 tab PO DAILY 07/03/25 07/30/25 disoproxil fumarate 300 mg tablet (Truvada) cephalexin 500 mg capsule PO 07/30/25 epinephrine 0.3 mg/0.3 mL IM 07/30/25 injection, auto-injector Allergies Allergy/AdvReac Type Severity Reaction Status Date / Time cephalexin Allergy Intermediate Hives Verified 07/30/25 04:37 Penicillins Allergy Intermediate Hives Verified 07/30/25 04:14 Review of Systems Status of ROS Reports: 10 or more systems reviewed and unremarkable except as noted in History and below PFSH PFS Social History Smoking Status: Never smoker Do you use any of these nicotine containing products: None How often do you have a drink containing alcohol: monthly or less How many standard drinks containing alcohol do you have on a typical day: 3 or 4 AUDIT-C Alcohol total score: 2 Non-prescribed substance use: marijuana (any form) Non-prescribed substance use details: occasionally service: No Exam Narrative: Exam Narrative: EXAM GENERAL: Patient appears comfortable and well. EYES: No scleral icterus. LYMPH: No supraclavicular or cervical lymphadenopathy. SKIN: Visible skin seen during exam normal or with benign process only. EXT: No dependent lower extremity pedal edema. Left great toe bandaged. HEART: Regular rate and rhythm with no murmurs, rubs, or gallops. LUNGS: Clear to auscultation bilaterally with no crackles or wheezes. ABD: Soft, non tender, non distended. PSYCH: Good eye contact, speech is not pressured. Const: Vital Signs, click to edit/add: Vital Signs - 24 hr 12/12/25 04:07 Temperature 98.1 F Pulse Rate [Right Pulse Oximeter] 75 Respiratory Rate 19 Blood Pressure [Ri ght Upper Arm] 144/85 H Pulse Oximetry 97 Oxygen Delivery Me thod Room Air Course Course ED Course: Patient seen examined. Toes been adequately drained 9 think we can proceed without any antibiotics. To give a 5 day course of prednisone to help with the hives he take Benadryl as needed follow-up with us on a p.r.n. basis. Vital Signs Vital signs: Initial Vital Signs Temperature 98.1 F 07/30/25 04:07 Temperature Source Temporal Artery Scan 07/30/25 04:07 Pulse Rate 75 07/30/25 04:07 Pulse Rhythm Regular 07/30/25 04:07 Pulse Strength 3+ Normal 07/30/25 04:07 Respiratory Rate 19 07/30/25 04:07 Blood Pressure 144/85 H 07/30/25 04:07 Blood Pressure Mean 104 07/30/25 04:07 Blood Pressure Position Supine 07/30/25 04:07 Pulse Oximetry 97 07/30/25 04:07 Oxygen Delivery Method Room Air 07/30/25 04:07 Vital Signs Temperature 98.1 F 07/30/25 04:07 Pulse Rate 75 07/30/25 04:07 Respiratory Rate 19 07/30/25 04:07 Blood Pressure 144/85 H 07/30/25 04:07 Pulse Oximetry 97 07/30/25 04:07 Oxygen Delivery Method Room Air 07/30/25 04:07 Temperature 98.1 F 07/30/25 04:07 Pulse Rate 75 07/30/25 04:07 Respiratory Rate 19 07/30/25 04:07 Blood Pressure 144/85 H 07/30/25 04:07 Pulse Oximetry 97 07/30/25 04:07 Oxygen Delivery Method Room Air 07/30/25 04:07 Discharge Plan Discharge Clinical Impression: Urticaria Patient Disposition: Home, Self-Care Condition: Stable Instructions: Urticaria (ED) Additional Instructions: Prednisone as directed Benadryl as needed for breakthrough symptoms No further antibiotics. Continue toe care as previous. Activity Level: No Restrictions Discharge Diet: Regular Prescriptions: No Action emtricitabine-tenofovir (TDF) [Truvada] 200-300 mg tablet 1 tab PO DAILY cephalexin 500 mg capsule PO epinephrine 0.3 mg/0.3 mL auto-injector IM Follow Up/Referrals: Provider,Not a Local [Primary Care Provider, Family Practice] Stand Alone Forms: Mosec, Mobile Secretary Info Instructions
== END 2025-07-30 05:10 | disposition home or self-care (01) ==
LOC: ED 04:41
PROVIDERS: Emergency Provider Internal Medicine
DX: L50.9 Urticaria, unspecified (principal)
CPT/HCPCS: 99282; 99283